=== PATIENT | male | born 1940 | race Caucasian/White ===

== ENCOUNTER → 2019-02-04 09:49 | Outpatient (CLI) | payer OTHER, SELFPAY ==
--- NOTE | 2019-02-04 | DI.NM.S_ITS ---
PROCEDURE: NM BONE SCAN WHOLE BODY RADIOPHARMACEUTICAL: 20.6 mCi Tc-99m MDP IV. INDICATIONS: ELEVATED PSA TECHNIQUE: Delayed whole-body scintigrams were obtained approximately 3-4 hours after intravenous injection of radiotracer. Anterior and posterior views were acquired from vertex to feet. COMPARISON: [facility], CT, CT ABDOMEN PELVIS W CON, 02/04/2019, 10:53. [facility], CT, CT-IVP, 01/09/2011, 10:21. FINDINGS: Degenerative changes at the mid and low cervical spine appear chronic, slightly asymmetric right greater than left shoulder joint osteoarthritis is present. Similarly, on the right there is a slightly greater degree of sternal clavicular joint degenerative change than on the left. Through the axial and appendicular skeleton bilaterally no osseous lesion is seen that would indicate presence of prostate carcinoma metastatic disease. 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 IMPRESSION: Degenerative changes only, no sign of metastatic disease. Dictated by: Aguila Vasquez M.D. on 02/04/2019 at 14:16 Approved by: Aguila Vasquez M.D. on 02/04/2019 at 14:18
--- NOTE | 2019-02-04 10:51 | DI.CT.S_ITS ---
PROCEDURE: CT ABDOMEN PELVIS W CON INDICATIONS: ELEVATED PSA TECHNIQUE: After the administration of oral and intravenous contrast, 5 mm thick sections acquired from the diaphragms to the symphysis. 5 mm thick coronal and sagittal reformats were performed. For radiation dose reduction, the following was used: automated exposure control, adjustment of mA and/or kV according to patient size. COMPARISON: [facility], NM, NM BONE SCAN WHOLE BODY, 02/04/2019, 12:58. [facility], CT, CT-IVP, 01/09/2011, 10:21. FINDINGS: Image quality: Excellent. ABDOMEN: Lung bases: Lung bases are clear. Heart size is normal. Solid organs: Liver is normal in size and enhancement. Gallbladder is partially contracted. Biliary system is non-dilated. Pancreas enhances normally. Spleen is normal in size and enhancement. No adrenal nodules. Kidneys are normal in size and enhancement, without hydronephrosis. Peritoneum and bowel: Stomach, small bowel, and colon loops are normal in caliber and wall thickness. No free fluid or air. Nodes and vessels: No retroperitoneal or mesenteric adenopathy. Aorta and inferior vena cava are normal in caliber. Miscellaneous: No ventral hernias. PELVIS: Genitourinary: Bladder wall thickness is normal. Miscellaneous: No inguinal hernias or adenopathy. Bones: No suspicious bony lesions. No vertebral body compression fractures. IMPRESSION: No osseous metastatic disease is seen. No adenopathy is found. There is no evidence of distant metastatic disease. An enlarged prostate or evidence of prostatic neoplasm extending into adjacent structures is not found. Dictated by: Aguila Vasquez M.D. on 02/04/2019 at 17:01 Approved by: Aguila Vasquez M.D. on 02/04/2019 at 17:02
== END ==
PROVIDERS: Family Provider Family Medicine; PCP Family Medicine; Visit Provider Family Medicine
DX: R97.20 Elevated prostate specific antigen [PSA] (principal); M47.812 Spondylosis without myelopathy or radiculopathy, cervical region; M19.012 Primary osteoarthritis, left shoulder; M19.011 Primary osteoarthritis, right shoulder; M19.042 Primary osteoarthritis, left hand; M19.041 Primary osteoarthritis, right hand; M17.0 Bilateral primary osteoarthritis of knee
CPT/HCPCS: 74177; 78306; A9503; Q9967

== ENCOUNTER → 2023-08-21 12:36 | Outpatient (ROUT) | payer OTHER, SELFPAY ==
[2023-08-21 12:49] LABS: Add Manual Diff / Slide Review NO; Basophils Absolute Auto 0 /uL (0-100); Basophils Percent Auto 0.5 % (0-2); Eosinophils Absolute Auto 200 /uL (0-450); Eosinophils Percent Auto 3.6 % (2-4); Hemoglobin 14.4 g/dL (13.5-17.5); Lymphocytes Absolute Auto 2200 /uL (1100-4500); Lymphocytes Percent Auto 36.7 % (25-40); Mean Corpuscular HGB Conc 33.5 % (30-36); Mean Corpuscular Hemoglobin 26.9 PG (26-34); Mean Corpuscular Volume 80.3 fL (80-100); Monocytes Absolute Auto 500 /uL (0-900); Monocytes Percent Auto 7.7 % (3-14); Neutrophils Absolute Auto 3000 /uL (1500-7000); Neutrophils Percent Auto 51.5 % (50-75); Platelet Count 204 X10^3/uL (150-400); Red Blood Cell Count 5.35 X10^6/uL (4.5-5.9); Red Cell Distribution Width 14.9 % (11.6-14.8); White Blood Cell Count 5.9 X10^3/uL (4.5-11.0)
[2023-08-21 12:55] LABS: Alanine Aminotransferase 21 IU/L (<50); Albumin 4.4 g/dL (3.5-5.0); Albumin Globulin Ratio 1.5 (1.0-2.8); Alkaline Phosphatase 63 U/L (38-126); Aspartate Aminotransferase 31 IU/L (17-59); BUN Creatinine Ratio 16.1 (6-22); Bilirubin Total 1.4 mg/dL (0.2-1.3); Blood Urea Nitrogen 22 mg/dL (9-20); Calcium 10.1 mg/dL (8.4-10.2); Carbon Dioxide 28 mmol/L (22-32); Chloride 105 mmol/L (98-107); Estimated Glomerular Filt Rate 52 mL/min (>60); Glucose 76 mg/dL (80-110); HEMOLYSIS < 15 (0-50); Potassium 4.3 mmol/L (3.4-5.1); Sodium 138 mmol/L (137-145); Total Protein 7.4 g/dL (6.3-8.2)
[2023-08-21 13:26] LABS: Prostate Specific Antigen 8.71 ng/mL (0.10-4.00)
== END ==
PROVIDERS: Visit Provider Family Medicine
DX: D51.9 Vitamin B12 deficiency anemia, unspecified (principal); Z85.46 Personal history of malignant neoplasm of prostate; F03.90 Unspecified dementia, unspecified severity, without behavioral disturbance, psychotic disturbance, mood disturbance, and anxiety
CPT/HCPCS: 80053; 84153; 85025

== ENCOUNTER → 2023-08-22 14:16 | Outpatient (CLI) | payer OTHER, SELFPAY ==
--- NOTE | 2023-08-22 14:22 | DI.RAD.S_ITS ---
PROCEDURE: XR CHEST 2V INDICATIONS: CHEST PAIN TECHNIQUE: 2 views of the chest were acquired. COMPARISON: [facility], , CHEST 2 VIEW, 05/28/2012, 15:27. FINDINGS: Surgical changes and devices: None. Lungs and pleura: Lungs are clear. No pleural effusions or pneumothorax. Mediastinum: Mediastinal contours are normal. Heart size is normal. Bones and chest wall: No suspicious bony abnormalities. Soft tissues appear unremarkable. IMPRESSION: No acute cardiopulmonary disease process. Dictated by: Najma Castro MD, PhD on 08/22/2023 at 14:42 Approved by: Najma Castro MD, PhD on 08/22/2023 at 14:44
== END ==
PROVIDERS: Family Provider Family Medicine; PCP Family Medicine; Referring Provider Family Medicine; Visit Provider Family Medicine
DX: R07.9 Chest pain, unspecified (principal)
CPT/HCPCS: 71046

== ENCOUNTER → 2023-10-14 14:54 | Outpatient (ROUT) | payer OTHER, SELFPAY ==
[2023-10-14 21:18] LABS: Prostate Specific Antigen 13.4 ng/mL (0.10-4.00)
== END ==
PROVIDERS: Family Provider Family Medicine; PCP Family Medicine; Visit Provider Family Medicine
DX: C61 Malignant neoplasm of prostate (principal); Z85.46 Personal history of malignant neoplasm of prostate
CPT/HCPCS: 84153

== ENCOUNTER → 2023-11-07 14:47 | Outpatient (ROUT) | payer OTHER, SELFPAY ==
[2023-11-07 15:11] LABS: BUN Creatinine Ratio 14.5 (6-22); Blood Urea Nitrogen 21 mg/dL (9-20); Calcium 9.9 mg/dL (8.4-10.2); Chloride 101 mmol/L (98-107); Estimated Glomerular Filt Rate 48 mL/min (>60); Glucose 82 mg/dL (80-110); HEMOLYSIS < 15 (0-50); Potassium 4.4 mmol/L (3.4-5.1); Sodium 138 mmol/L (137-145)
[2023-11-07 17:03] LABS: Carbon Dioxide 25 mmol/L (22-32)
== END ==
PROVIDERS: Family Provider Family Medicine; PCP Family Medicine; Visit Provider Family Medicine
DX: Z13.89 Encounter for screening for other disorder (principal)
CPT/HCPCS: 80048

== ENCOUNTER → 2023-11-14 09:45 | Outpatient (CLI) | payer OTHER, SELFPAY ==
--- NOTE | 2023-11-14 09:47 | DI.NM.S_ITS ---
PROCEDURE: NE BONE SCAN WHOLE BODY RADIOPHARMACEUTICAL: 22.0 mCi Tc-99m MDP IV. INDICATIONS: Rising PSA TECHNIQUE: Delayed whole-body scintigrams were obtained approximately 3-4 hours after intravenous injection of radiotracer. Anterior and posterior views were acquired from vertex to feet. Additional left and right oblique views of the pelvis were obtained. COMPARISON: [facility], CT, CT ABDOMEN PELVIS W CON, 11/14/2023, 10:58. [facility], CT, CT ABDOMEN PELVIS W CON, 02/04/2019, 10:53. [facility], NM, NE BONE SCAN WHOLE BODY, 02/04/2019, 12:58. FINDINGS: There is focal increased uptake at the cervical thoracic junction. No lesions are identified in skull, sternum, clavicles, scapulae, ribs, bony pelvis, and visualized shafts of the long bones. There are foci of increased uptake in cervical, thoracic and lumbar spine most likely secondary to degenerative disc and facet disease; early metastasis to spine could be obscured by degenerative changes. There are foci of increased periarticular activity most pronounced in shoulders and hips, compatible with degenerative/arthritic changes. There are 2 kidneys, normal in size and position. There is moderate right hydronephrosis and hydroureter. IMPRESSION: 1. Increased activity at the cervical thoracic junction. Recommend radiographic correlation. 2. Moderate right hydronephrosis and hydroureter. 3. In this patient with rising PSA and prostatectomy, consider PSMA PET CT for further evaluation. Dictated by: Anali Philip M.D. on 11/14/2023 at 16:02 Approved by: Anali Philip M.D. on 11/14/2023 at 16:06
--- NOTE | 2023-11-14 09:47 | DI.CT.S_ITS ---
PROCEDURE: CT ABDOMEN PELVIS W CON INDICATIONS: Rising PSA TECHNIQUE: After the administration of intravenous contrast, axial sections acquired from the lung bases to the pubic symphysis. Coronal and sagittal reformats were performed. For radiation dose reduction, the following was used: automated exposure control, adjustment of mA and/or kV according to patient size. COMPARISON: [facility], CT, CT ABDOMEN PELVIS W CON, 02/04/2019, 10:53. FINDINGS: Image quality: Diagnostic. Lower Chest: No significant findings. ABDOMEN: Liver: Macro lobulated liver contour, possibly cirrhosis. Patent portal veins. Scattered subcentimeter hypoattenuating lesions, too small to characterize by CT but probably small cysts. Gallbladder: No radiopaque gallstones or wall thickening. Biliary ducts: No biliary dilation. Pancreas: No ductal dilation. Spleen: Size is within normal limits. Adrenal Glands: No adrenal nodules. Kidneys and Ureters: Hyperattenuating mass on the superior pole of the right kidney measuring 1.4 centimeter previously 0.9 centimeter in 2019. Severe right-sided hydronephrosis, with decreased enhancement of the right kidney. Circumferential thickening of the distal right ureter (series 2, image 73). Stomach and Bowel: Normal colonic caliber, without significant wall thickening. Colonic diverticulosis without evidence of diverticulitis. Peritoneum: No abnormal intraperitoneal fluid. No free air. Ventral Wall: No hernia. Abdominal Nodes: No retroperitoneal or mesenteric adenopathy by size criteria. Vessels: Aorta and inferior vena cava are normal in size. PELVIS: Pelvic Organs: Prostatectomy. Mildly increased enhancement of the right lateral and central seminal vesicles (series 2, image 80). Bladder: Unremarkable. Pelvic Nodes: No enlarged lymph nodes. Miscellaneous: Left inguinal hernia repair. Right inguinal hernia containing fat, small in size. Bones: No aggressive osseous abnormality. IMPRESSION: Prostatectomy. Mildly increased enhancement in the right lateral and central seminal vesicles, could represent local recurrence. Consider correlation with PMSA (now offered at [facility]). Severe right-sided hydronephrosis. Circumferential thickening and hyperattenuation of the right distal ureter, which may indicate malignancy such as transitional cell carcinoma, less likely infection. Consider urology referral. Growing, hyper attenuating right renal lesion measuring 1.4 centimeters, previously 0.9 centimeters in 2019. Differential includes indolent renal cell carcinoma versus lipid poor AML. Dictated by: Hussain Jones M.D. on 11/14/2023 at 11:56 Approved by: Hussain Jones M.D. on 11/14/2023 at 12:02
== END ==
LOC: NUCM 09:45
PROVIDERS: Family Provider Family Medicine; PCP Family Medicine; Referring Provider Family Medicine; Visit Provider Family Medicine
DX: R97.21 Rising PSA following treatment for malignant neoplasm of prostate (principal); C61 Malignant neoplasm of prostate; N13.30 Unspecified hydronephrosis; N28.9 Disorder of kidney and ureter, unspecified
CPT/HCPCS: 74177; 78306; A9503; Q9967

== ENCOUNTER → 2024-01-08 15:26 | Outpatient (ROUT) | payer OTHER, SELFPAY ==
[2024-01-08 16:52] LABS: Prostate Specific Antigen 29.3 ng/mL (0.10-4.00)
== END ==
PROVIDERS: Visit Provider Family Medicine
DX: R97.21 Rising PSA following treatment for malignant neoplasm of prostate (principal); C61 Malignant neoplasm of prostate
CPT/HCPCS: 84153

== ENCOUNTER 2024-05-07 18:03 | Emergency (ER) | payer OTHER, SELFPAY ==
[2024-05-07 18:16] VITALS: BP 133/65; PULSE 68; RESP 17; TEMP 36.6; O2SAT 98; BMI 26.4
--- NOTE | 2024-05-07 18:19 | DI.RAD.S_ITS ---
PROCEDURE: XR SHOULDER LT MIN 2V INDICATIONS: fall TECHNIQUE: 3 views of the shoulder were acquired. COMPARISON: None. FINDINGS: Bones: No fractures or dislocations. Moderate acromioclavicular joint degeneration. No suspicious bony lesions. Visualized ribs appear intact. Soft tissues: No suspicious soft tissue calcifications. IMPRESSION: No acute osseous abnormality. If pain persists with conservative management, consider repeat x-ray in 10-14 days or cross-sectional imaging. Dictated by: Trenton Dalal M.D. on 05/07/2024 at 19:31 Approved by: Trenton Dalal M.D. on 05/07/2024 at 19:31
--- NOTE | 2024-05-07 20:12 | ED_ITS ---
HPI - Extremity Injury (Upper) General Chief Complaint: Extremity Injury, Upper Stated Complaint: Fall, left shoulder px, no blood thinners Time Seen by Provider: 05/07/24 18:12 Source: patient and family Mode of arrival: Ambulatory Limitations: no limitations History of Present Illness HPI narrative: 83-year-old male with history of dementia who had a ground level fall. Patient was walking his what with his found on a piece of property. He fell in his shoulder. No loss of consciousness no complaints of neck pain. Has complained of pain with his shoulder with movement and trying to push up. This happened about 330 in the afternoon has not resolved. No other complaints. Patient has not had any headaches, no difficulty with breathing, no chest pain, no nausea or vomiting no other GI or urinary symptoms. Does not take any anticoagulants. states he did not hit his head. Patient does have dementia in his unable to give much history about the episode. 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 Patient is cooperative. HEENT: Head normocephalic, atraumatic, EOMI, pupils reactive, face symmetric, moist mucous membranes NECK: Supple, full range of motion CARDIOVASCULAR: Regular rate and rhythm without murmurs, rubs or gallops. RESPIRATORY: Breath sounds equal bilaterally, no wheezes rales or rhonchi. ABDOMEN: Soft, nontender. Normoactive bowel sounds all 4 quadrants. No guarding or rebound, rigidity, no mass : No CVA tenderness EXTREMITIES: Normal range of motion passively of the shoulder, normal active range of motion of the elbow wrist and hand on the left. Some mild tenderness over the anterior shoulder but no significant tenderness over clavicle shoulder humerus elbow hand or wrist. 2+ radial pulse bilaterally. Vocational Rehabilitation Consultant are equal bilaterally. Normal sensation throughout, no clubbing or edema. Neurovascularly intact NEUROLOGICAL: Cranial nerves II through XII grossly intact. Moving all extremities SKIN: Warm, dry, no petechiae, no rashes or lesions. Initial Vital Signs Initial Vital Signs: Vital Signs Temperature 98 F 05/07/24 18:16 Pulse Rate 68 05/07/24 18:16 Respiratory Rate 17 05/07/24 18:16 Blood Pressure 133/65 05/07/24 18:16 Pulse Oximetry 98 05/07/24 18:16 Oxygen Delivery Method Room Air 05/07/24 18:16 Course Orders Ordered: ED Orders 05/07/24 18:19 XR shoulder LT min 2V Stat Vital Signs Vital signs: Vital Signs - 8 hr 05/07/24 18:16 Temperature 98 F Pulse Rate 68 Respiratory Rate 17 Blood Pressure 133/65 Pulse Oximetry 98 Oxygen Delivery Method Room Air MDM - Extremity Injury (Upper) MDM Narrative Medical decision making narrative: Shoulder x-ray shows no acute osseous abnormality. Moderate AC joint degeneration. No fractures or dislocations. Patient's exam is overall reassuring he can move up above his head passively. Does not really follow commands to do this but he also has pretty significant dementia. Discussed with plan for Tylenol, sling as needed and follow up in the next week if symptoms are persisting. Discharge Plan Departure Patient Disposition: Home Clinical Impression: Left shoulder pain Instructions: DI for Shoulder Sprain Activity Restrictions/Additional Instructions: Follow up in the next 7-10 days for recheck if symptoms have not improved. You can take Tylenol up to a 1000 mg every 6 hours as needed. You can use sling as needed, if you are moving your arm without any issue you do not have to continue to use it. Keep sling dry. Elevated affected body part to decrease swelling. OK to use ice pack on the affected body part. Use for 15-20 minutes each time, for 5-6x per day. If you develop worsening pain, numbness, tingling, discoloration of the affected body part, adjust the sling as needed., and either see your doctor for an urgent re-assessment, or return to the Emergency Department. Return to the Emergency Department for any new or worsening symptoms. Prescriptions: No Action prednisone 5 mg tablet 5 mg PO DAILY abiraterone 250 mg tablet 250 mg PO DAILY Referrals: Karis Wheeler MD [Primary Care Provider] - Stand Alone Forms: Patient Portal/API
[2024-05-07 20:20] VITALS: BP 146/91; PULSE 66; RESP 17; O2SAT 98
== END 2024-05-07 20:24 | disposition home or self-care (01) ==
PROVIDERS: Emergency Provider Emergency Medicine; Family Provider Family Medicine; PCP Family Medicine
DX: M25.512 Pain in left shoulder (principal)
CPT/HCPCS: 73030; 99282; 99283

== ENCOUNTER 2024-10-27 18:55 | Emergency (ER) | payer OTHER, SELFPAY ==
[2024-10-27 19:04] VITALS: BP 113/68
--- NOTE | 2024-10-27 19:09 | ED.GENADULT ---
HPI - General Adult General Chief complaint: Altered Mental Status Stated complaint: Increased Aggitation/Clutching abdomen Time Seen by Provider: 10/27/24 19:09 Source: patient, EMS, RN notes reviewed and old records reviewed Mode of arrival: EMS History of Present Illness HPI narrative: 83-year-old male history of dementia brought in by EMS for increased agitation and appears to potentially be in pain. He currently lives in a memory care unit they note patient is usually happy and ambulatory but has been acting like he is in pain seems to be more uncomfortable with any sort of palpation or touch to his abdomen. Patient keeps saying that he was going to be insonated and to stay away from the fire. He was not able to really participate otherwise in the evaluation. No reported anticoagulants. Patient is DNR/DNI comfort measures according to his POLST. Spoke with patient's , she states he has been doing very well in the last few days he does have known hallucinations, he has metastatic prostate cancer. He does not usually have a pain patch in place. She states he is definitely more upset this evening she states he received lorazepam which is sometimes helpful. She is open to further workup if we can get him more comfortable. Related Data Home Medications Medication Instructions Recorded Confirmed abiraterone 250 mg tablet 250 mg PO DAILY 05/07/24 07/05/24 prednisone 5 mg tablet 5 mg PO DAILY 05/07/24 07/05/24 lorazepam 0.5 mg tablet mg PO 07/05/24 07/05/24 Previous Rx's Medication Instructions Recorded lidocaine 3 %-hydrocortisone 0.5 % 1 applic topical BID-TID PRN 07/05/24 topical cream shingles rash #28.3 grams valacyclovir 1 gram tablet 1,000 mg PO Q8H shingles #21 tabs 07/05/24 Allergies Allergy/AdvReac Type Severity Reaction Status Date / Time No Known Drug Allergies Allergy Verified 07/05/24 10:19 Review of Systems Review of Systems ROS Unobtainable: Unobtainable due to mental status/LOC 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 Patient has clear speech but does not answer questions or really follow commands. HEENT: Head normocephalic, atraumatic, EOMI, pupils reactive, face symmetric, moist mucous membranes NECK: Supple, full range of motion CARDIOVASCULAR: Regular rate and rhythm without murmurs, rubs or gallops. RESPIRATORY: Breath sounds equal bilaterally, no wheezes rales or rhonchi. ABDOMEN: Soft, nondistended. No skin changes. Patient does not have any specific tenderness that I can elicit in any particular quadrant but does seem uncomfortable when I palpate his abdomen. Normoactive bowel sounds all 4 quadrants. No guarding or rebound, rigidity, no mass : No CVA tenderness EXTREMITIES: Normal range of motion, no clubbing or edema. Neurovascularly intact NEUROLOGICAL: Cranial nerves II through XII grossly intact. Moving all extremities SKIN: Warm, dry, no petechiae, no rashes or lesions. Initial Vital Signs Initial Vital Signs: Vital Signs Blood Pressure 113/68 10/27/24 19:04 Oxygen Delivery Method Room Air 10/27/24 19:04 Course Orders Ordered: Discontinued Medications Lorazepam (Lorazepam 0.5 Mg Tablet) 1 mg PO NOW ONE Stop: 10/27/24 19:16 Last Admin: 10/27/24 21:43 Dose: Not Given Documented By: Lorazepam (Lorazepam 2 Mg/Ml Inj) 1 mg IM NOW ONE Stop: 10/27/24 19:27 Last Admin: 10/27/24 19:31 Dose: 1 mg Documented By: Magnesium Citrate (Magnesium Citrate 300 Ml Solution) 300 ml PO NOW ONE Stop: 10/27/24 22:43 Last Admin: 10/27/24 22:57 Dose: 300 ml Documented By: Vital Signs Vital signs: Vital Signs - 8 hr 10/27/24 19:04 Blood Pressure 113/68 Oxygen Delivery Method Room Air Medical Decision Making Lab Data 10/27/24 20:05 10/27/24 20:05 Labs: Lab Results 10/27/24 Range/Units 20:05 WBC 5.3 (4.5-11.0) X10^3/uL RBC 4.13 L (4.5-5.9) X10^6/uL Hgb 11.2 L (13.5-17.5) g/dL Hct 33.8 L (41-53) % MCV 81.7 (80-100) fL MCH 27.2 (26-34) PG MCHC 33.3 (30-36) % RDW 14.6 (11.6-14.8) % Plt Count 184 (150-400) X10^3/uL Neut % (Auto) 72.5 (50-75) % Lymph % (Auto) 17.6 L (25-40) % [place] % (Auto) 7.9 (3-14) % Eos % (Auto) 1.5 L (2-4) % Baso % (Auto) 0.5 (0-2) % Neut # (Auto) 3900 (2679-9507) /uL Lymph # (Auto) 900 L (1239-2776) /uL [place] # (Auto) 400 (0-900) /uL Eos # (Auto) 100 (0-450) /uL Baso # (Auto) 0 (0-100) /uL Sodium 137 (137-145) mmol/L Potassium 3.9 (3.4-5.1) mmol/L Chloride 106 (98-107) mmol/L Carbon Dioxide 25 (22-32) mmol/L BUN 16 (9-20) mg/dL Creatinine 0.96 (0.66-1.25) mg/dL Estimated GFR > 60 (>60) mL/min BUN/Creatinine Ratio 16.7 (6-22) Glucose 136 H (80-110) mg/dL Calcium 9.6 (8.4-10.2) mg/dL Total Bilirubin 1.4 H (0.2-1.3) mg/dL AST 29 (17-59) IU/L ALT 21 (<50) IU/L Alkaline Phosphatase 48 (38-126) U/L Total Protein 6.3 (6.3-8.2) g/dL Albumin 3.7 (3.5-5.0) g/dL Globulin 2.6 (1.7-4.1) g/dL Albumin/Globulin Ratio 1.4 (1.0-2.8) Lipase 48 (23-300) U/L MDM Narrative Medical decision making narrative: White count of 5.3 hemoglobin 11.2 platelets of 184. Electrolytes are appropriate creatinine normal glucose is 136 bilirubin is 1.4 LFTs are otherwise negative lipase is 48. CT shows prostatectomy with redemonstration local tumor recurrence the base of the bladder numerous osseous metastases no pathologic fracture fecal loading which may represent constipation large rectal stool ball mildly increased soft tissue thickening sterile correlate colitis can not be excluded no obvious bladder obstruction. Patient received a dose of lorazepam as he was quite agitated when he arrived and he takes this at home was given IM as he would not take it orally. Discussed with he was comfort measures she was okay with workup if he is tolerating it well. Labs were obtained CT was obtained after discussion we will hold off on enema or disimpaction. We discussed obtaining urine but would probably require catheter which would like to defer. Discussed findings from today and return precautions. Discharge Plan Departure Patient Disposition: Home Clinical Impression: Constipation, Agitation Activity Restrictions/Additional Instructions: Your workup today shows no acute pathological fractures does show a lot of fecal loading could be constipation there is a large ball of stool at the rectal vault as well as throughout, as we have discussed we will hold off on nmr disimpaction at this time but if you have not had a bowel movement in 24-48 hours with increasing pain or agitation you should be re-evaluated. We did not obtain a urine to rule out UTI although this seems less likely source of symptoms at this time. There has also a possibility if you have had shingles in the abdomen in that area before that you can have a recurrence pain can sometimes proceed any rash or skin changes by several days. Keep a close eye out for any new skin changes. Drink 1/2 bottle of the magnesium citrate if no bowel movement you can drink the 2nd half of the bottle 4 or 5 hours later. I would recommend taking Colace 1-2 tablets daily along with MiraLax daily if you are not having bowel movements. Please return for fevers, any other new or concerning changes to mentation, new abdominal back flank pain, vomiting, black or bloody stools, inability to urinate or other new or concerning changes. Prescriptions: No Action lorazepam 0.5 mg tablet PO valacyclovir 1 gram tablet 1,000 mg PO Q8H Qty: 21 0RF lidocaine HCl-hydrocortison ac 3-0.5 % cream 1 applic topical BID-TID PRN (Reason: shingles rash) Qty: 28.3 1RF prednisone 5 mg tablet 5 mg PO DAILY abiraterone 250 mg tablet 250 mg PO DAILY Referrals: Karis Wheeler MD [Primary Care Provider] - Stand Alone Forms: Patient Portal/API/Survey
--- NOTE | 2024-10-27 19:15 | DI.CT.S_ITS ---
PROCEDURE: CT ABDOMEN PELVIS W CON INDICATIONS: Dementia, agitation, seems to have abdominal pain. TECHNIQUE: After the administration of intravenous contrast, axial sections acquired from the lung bases to the pubic symphysis. Coronal and sagittal reformats were performed. For radiation dose reduction, the following was used: automated exposure control, adjustment of mA and/or kV according to patient size. COMPARISON: [facility], CT, CT ABDOMEN PELVIS W CON, 11/14/2023, 10:58., PET P SMA 02/12/2024 FINDINGS: Image quality: Severely degraded by patient motion artifact.. Lower Chest: No significant findings. ABDOMEN: Liver: No solid mass. Redemonstration of multiple subcentimeter hepatic hypodensities, too small to characterize by CT. Gallbladder: No radiopaque gallstones or wall thickening. Biliary ducts: No biliary dilation. Pancreas: No ductal dilation. Spleen: Size is within normal limits. Adrenal Glands: No adrenal nodules. Kidneys and Ureters: No hydronephrosis. No solid mass. No complex renal cystic lesion which requires follow up. Stomach and Bowel: Normal colonic caliber, without significant wall thickening. High fecal loading. Large rectal stool ball. Peritoneum: No abnormal intraperitoneal fluid. No free air. Ventral Wall: No significant ventral hernia. Abdominal Nodes: No retroperitoneal or mesenteric adenopathy by size criteria. Vessels: Aorta and inferior vena cava are normal in size. PELVIS: Pelvic Organs: Prostatectomy. Redemonstration of soft tissue nodularity at the base of the bladder on the right consistent with local tumor recurrence in better visualized on prior PET PS mA. Bladder: No bladder wall thickening, accounting for underdistention. Pelvic Nodes: No enlarged lymph nodes. Miscellaneous: No inguinal hernias are seen. Bones: Innumerable sclerotic foci throughout the appendicular and axial skeleton, new since prior CT 11/14/2023 consistent with bone metastases. No pathological fracture. IMPRESSION: Prostatectomy with redemonstration of local tumor recurrence at the base of the bladder, better visualized on prior PET exam. Numerous osseous metastasis. No pathological fracture. High fecal loading which may represent constipation. Large rectal stool ball with mildly increased soft tissue thickening, stercoral colitis cannot be excluded. Approved by: Dori Castellon M.D.,Ph.D. on 10/27/2024 at 21:46
--- NOTE | 2024-10-27 19:30 | PC.NURSE ---
Pt lying back in gurney. Yelling and saying that there is a burning sensation. Pt holding on to gurney firmly Pt medicated for anxiety.
[2024-10-27] MEDS: LORazepam 2 MG/ML INJ 1 MG IM (19:31)
[2024-10-27 20:11] VITALS: BP 135/78; PULSE 65; RESP 19; O2SAT 98
[2024-10-27 20:13] LABS: Add Manual Diff / Slide Review NO; Basophils Absolute Auto 0 /uL (0-100); Basophils Percent Auto 0.5 % (0-2); Eosinophils Absolute Auto 100 /uL (0-450); Eosinophils Percent Auto 1.5 % (2-4); Hematocrit 33.8 % (41-53); Hemoglobin 11.2 g/dL (13.5-17.5); Lymphocytes Absolute Auto 900 /uL (1100-4500); Lymphocytes Percent Auto 17.6 % (25-40); Mean Corpuscular HGB Conc 33.3 % (30-36); Mean Corpuscular Hemoglobin 27.2 PG (26-34); Mean Corpuscular Volume 81.7 fL (80-100); Monocytes Absolute Auto 400 /uL (0-900); Monocytes Percent Auto 7.9 % (3-14); Neutrophils Absolute Auto 3900 /uL (1500-7000); Neutrophils Percent Auto 72.5 % (50-75); Platelet Count 184 X10^3/uL (150-400); Red Blood Cell Count 4.13 X10^6/uL (4.5-5.9); Red Cell Distribution Width 14.6 % (11.6-14.8); White Blood Cell Count 5.3 X10^3/uL (4.5-11.0)
[2024-10-27 20:24] LABS: Alanine Aminotransferase 21 IU/L (<50); Albumin 3.7 g/dL (3.5-5.0); Albumin Globulin Ratio 1.4 (1.0-2.8); Alkaline Phosphatase 48 U/L (38-126); Aspartate Aminotransferase 29 IU/L (17-59); BUN Creatinine Ratio 16.7 (6-22); Bilirubin Total 1.4 mg/dL (0.2-1.3); Blood Urea Nitrogen 16 mg/dL (9-20); Calcium 9.6 mg/dL (8.4-10.2); Carbon Dioxide 25 mmol/L (22-32); Chloride 106 mmol/L (98-107); Estimated Glomerular Filt Rate > 60 mL/min (>60); Globulin 2.6 g/dL (1.7-4.1); Glucose 136 mg/dL (80-110); HEMOLYSIS < 15 (0-50); Lipase 48 U/L (23-300); Potassium 3.9 mmol/L (3.4-5.1); Sodium 137 mmol/L (137-145); Total Protein 6.3 g/dL (6.3-8.2)
[2024-10-27 21:11] VITALS: BP 145/78; PULSE 65; RESP 16; O2SAT 99
[2024-10-27 22:11] VITALS: BP 144/77; PULSE 63; RESP 16; O2SAT 98
[2024-10-27] MEDS: MAGNESIUM CITRATE 300 ML SOLUTION PO (22:57)
== END 2024-10-27 23:00 | disposition home or self-care (01) ==
PROVIDERS: Emergency Provider Emergency Medicine; Family Provider Family Medicine; PCP Family Medicine
DX: R45.1 Restlessness and agitation (principal); K59.00 Constipation, unspecified; R44.3 Hallucinations, unspecified; C61 Malignant neoplasm of prostate; Z66 Do not resuscitate
CPT/HCPCS: 36415; 74177; 80053; 83690; 85025; 96372; 99284; J2060

== ENCOUNTER 2024-10-28 10:47 | Emergency (ER) | payer OTHER, SELFPAY ==
[2024-10-28 10:52] VITALS: BP 133/61; PULSE 89; PULSE 90; RESP 16; TEMP 36.6; O2SAT 94; O2SAT 95
[2024-10-28 10:53] VITALS: TEMP 36.6; BMI 25.1
[2024-10-28 11:00] VITALS: BP 112/57; PULSE 80; O2SAT 95
--- NOTE | 2024-10-28 11:04 | ED.GENADULT ---
HPI - General Adult General Chief complaint: Abdominal Pain Stated complaint: ABD pain/Constipation Time Seen by Provider: 10/28/24 10:52 Source: EMS Mode of arrival: EMS Limitations: other (Dementia) History of Present Illness HPI narrative: Patient has a history of dementia. Lives at a memory care facility. Is here for evaluation of what was reported to be abdominal pain although here in the emergency department the patient denies any pain. He was seen here in the ER yesterday for agitation. Had a workup in his CT scan of his abdomen but showed probable constipation. Was given magnesium citrate and sent home with instructions to take another dose of the magnesium citrate but apparently this was not administered to the patient. Related Data Home Medications Medication Instructions Recorded Confirmed abiraterone 250 mg tablet 250 mg PO DAILY 05/07/24 07/05/24 prednisone 5 mg tablet 5 mg PO DAILY 05/07/24 07/05/24 lorazepam 0.5 mg tablet mg PO 07/05/24 07/05/24 Previous Rx's Medication Instructions Recorded lidocaine 3 %-hydrocortisone 0.5 % 1 applic topical BID-TID PRN 07/05/24 topical cream shingles rash #28.3 grams valacyclovir 1 gram tablet 1,000 mg PO Q8H shingles #21 tabs 07/05/24 Allergies Allergy/AdvReac Type Severity Reaction Status Date / Time No Known Drug Allergies Allergy Verified 07/05/24 10:19 Review of Systems Review of Systems Narrative: Very difficult to obtain review of systems given the patient's dementia. 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 Elevated PSA Social History Smoking Status: Former smoker Tobacco: How many years used: 10 second hand exposure: No alcohol intake: current substance use type: does not use Smoking Status: Former smoker alcohol intake frequency: 0-2 drinks per day Exam Initial Vital Signs Initial Vital Signs: Vital Signs Temperature 98 F 10/28/24 10:52 Pulse Rate 90 10/28/24 10:52 Respiratory Rate 16 10/28/24 10:52 Blood Pressure 133/61 10/28/24 10:52 Pulse Oximetry 94 10/28/24 10:52 Oxygen Delivery Method Room Air 10/28/24 10:52 Const General: cooperative, comfortable and No ill appearing [facility] Head: normal to inspection and normocephalic Resp Auscultation: clear to auscultation bilaterally Percussion: percussion normal Cardio Rate: regular rate Rhythm: regular rhythm GI Inspection: normal to inspection and non-distended Palpation: soft Skin General: no rashes or lesions noted Extrem Other: No gross deformities. Course Orders Ordered: ED Orders 10/28/24 11:26 Urinalysis and Microscopic Stat 10/28/24 12:57 Complete Blood Count AUTO DIFF Stat Comprehensive Metabolic Panel Stat Lipase Stat Discontinued Medications Lidocaine HCl (Lidocaine 2% (Glydo) 6 Ml Gel) 6 ml TOP NOW ONE Stop: 10/28/24 11:15 Last Admin: 10/28/24 11:20 Dose: 6 ml Documented By: Magnesium Citrate (Magnesium Citrate 300 Ml Solution) 300 ml PO NOW ONE Stop: 10/28/24 11:15 Last Admin: 10/28/24 12:40 Dose: 300 ml Documented By: Vital Signs Vital signs: Vital Signs - 8 hr 10/28/24 10:52 10/28/24 10:53 Temperature 98 F 97.8 F Pulse Rate 90 Respiratory Rate 16 Blood Pressure [Right Arm] 133/61 Pulse Oximetry 94 Oxygen Delivery Method Room Air Medical Decision Making Medical Records Medical records reviewed: Yes I reviewed the patient's medical records. Lab Data Lab results reviewed: Yes I reviewed the patient's lab results. 10/28/24 12:57 10/28/24 12:57 Labs: Lab Results 10/28/24 10/28/24 Range/Units 11:26 12:57 WBC 5.6 (4.5-11.0) X10^3/uL RBC 4.43 L (4.5-5.9) X10^6/uL Hgb 12.0 L (13.5-17.5) g/dL Hct 36.5 L (41-53) % MCV 82.4 (80-100) fL MCH 27.1 (26-34) PG MCHC 32.8 (30-36) % RDW 14.6 (11.6-14.8) % Plt Count 202 (150-400) X10^3/uL Neut % (Auto) 62.3 (50-75) % Lymph % (Auto) 26.1 (25-40) % [place] % (Auto) 8.1 (3-14) % Eos % (Auto) 2.9 (2-4) % Baso % (Auto) 0.6 (0-2) % Neut # (Auto) 3500 (9313-8583) /uL Lymph # (Auto) 1500 (0901-5097) /uL [place] # (Auto) 500 (0-900) /uL Eos # (Auto) 200 (0-450) /uL Baso # (Auto) 0 (0-100) /uL Sodium 138 (137-145) mmol/L Potassium 3.9 (3.4-5.1) mmol/L Chloride 106 (98-107) mmol/L Carbon Dioxide 27 (22-32) mmol/L BUN 14 (9-20) mg/dL Creatinine 0.90 (0.66-1.25) mg/dL Estimated GFR > 60 (>60) mL/min BUN/Creatinine Ratio 15.6 (6-22) Glucose 103 (80-110) mg/dL Calcium 10.0 (8.4-10.2) mg/dL Total Bilirubin 1.6 H (0.2-1.3) mg/dL AST 31 (17-59) IU/L ALT 20 (<50) IU/L Alkaline Phosphatase 53 (38-126) U/L Total Protein 7.0 (6.3-8.2) g/dL Albumin 3.9 (3.5-5.0) g/dL Globulin 3.1 (1.7-4.1) g/dL Albumin/Globulin Ratio 1.3 (1.0-2.8) Lipase 54 (23-300) U/L Urine Color Yellow Urine Appearance Clear Urine pH 6.5 (4.5-8.0) Ur Specific [place] 1.015 (1.000-1.035) Urine Protein Trace H (Negative) Urine Glucose (UA) Negative (Negative) g/dL Urine Ketones Trace H (NEGATIVE) Urine Occult Blood Negative (Negative) Urine Nitrate Negative (Negative) Urine Bilirubin Negative (NEGATIVE) Urine Urobilinogen 1.0 (0.2) E.U./dL Ur Leukocyte Esterase Negative (NEGATIVE) Urine RBC None seen (0-5/HPF) Urine WBC None seen (0-5/HPF) Ur Squamous Epith Cells None seen (0-5/HPF) Ur Renal Epithelial Cell 0-1/hpf (0-1/HPF) Urine Bacteria None seen (None) Ur Culture Indicated? Cult not indicated Vol Urine Centrifuged 10ml (spun) MDM Narrative Medical decision making narrative: Patient was at his baseline mental status. Had an extensive workup yesterday which showed a very large fecal load. His labs today are unremarkable. Has a soft abdomen. He has been drinking his magnesium citrate. I think that he would benefit from an enema however given his dementia I do not think that he would hold the enema for any extended period of time that would make it beneficial. He can continue to take laxatives by mouth. Will hold on any further workup for now. Patient's is in agreement. Discharge Plan Departure Patient Disposition: Home Clinical Impression: Constipation Instructions: DI for Constipation Activity Restrictions/Additional Instructions: I do recommend that Julio receive a laxative during his meals for the next couple days or until he has a bowel movement. He can continue the rest of his medications as directed. Prescriptions: No Action lorazepam 0.5 mg tablet PO valacyclovir 1 gram tablet 1,000 mg PO Q8H Qty: 21 0RF lidocaine HCl-hydrocortison ac 3-0.5 % cream 1 applic topical BID-TID PRN (Reason: shingles rash) Qty: 28.3 1RF prednisone 5 mg tablet 5 mg PO DAILY abiraterone 250 mg tablet 250 mg PO DAILY Referrals: Karis Wheeler MD [Primary Care Provider] - Stand Alone Forms: Patient Portal/API/Survey
[2024-10-28] MEDS: LIDOCAINE 2% (GLYDO) 6 ML GEL TOP (11:20)
--- NOTE | 2024-10-28 11:42 | PC.NURSE ---
Straight cath for UA. Pt tolerated fair. Pt not drinking mag citrate. Elza at bedside.
[2024-10-28] MEDS: MAGNESIUM CITRATE 300 ML SOLUTION PO (12:40)
[2024-10-28 12:57] LABS: Appearance Urine UA CLEAR; Bilirubin Urine UA NEGATIVE (NEGATIVE); Color Urine UA YELLOW; Glucose Urine UA NEGATIVE (Negative); Ketones Urine UA TRACE (NEGATIVE); Leukocyte Esterase Urine UA NEGATIVE (NEGATIVE); Nitrite Urine UA NEGATIVE (Negative); Occult Blood Urine UA NEGATIVE (Negative); Protein Urine UA TRACE (Negative); Specific Gravity Urine UA 1.015 (1.000-1.035); pH Urine UA 6.5 (4.5-8.0)
[2024-10-28 13:12] LABS: Add Manual Diff / Slide Review NO; Basophils Absolute Auto 0 /uL (0-100); Basophils Percent Auto 0.6 % (0-2); Eosinophils Absolute Auto 200 /uL (0-450); Eosinophils Percent Auto 2.9 % (2-4); Hematocrit 36.5 % (41-53); Lymphocytes Absolute Auto 1500 /uL (1100-4500); Lymphocytes Percent Auto 26.1 % (25-40); Mean Corpuscular HGB Conc 32.8 % (30-36); Mean Corpuscular Hemoglobin 27.1 PG (26-34); Mean Corpuscular Volume 82.4 fL (80-100); Monocytes Absolute Auto 500 /uL (0-900); Monocytes Percent Auto 8.1 % (3-14); Neutrophils Absolute Auto 3500 /uL (1500-7000); Neutrophils Percent Auto 62.3 % (50-75); Platelet Count 202 X10^3/uL (150-400); Red Blood Cell Count 4.43 X10^6/uL (4.5-5.9); Red Cell Distribution Width 14.6 % (11.6-14.8); White Blood Cell Count 5.6 X10^3/uL (4.5-11.0)
[2024-10-28 13:28] LABS: Alanine Aminotransferase 20 IU/L (<50); Albumin 3.9 g/dL (3.5-5.0); Albumin Globulin Ratio 1.3 (1.0-2.8); Alkaline Phosphatase 53 U/L (38-126); Aspartate Aminotransferase 31 IU/L (17-59); BUN Creatinine Ratio 15.6 (6-22); Bilirubin Total 1.6 mg/dL (0.2-1.3); Blood Urea Nitrogen 14 mg/dL (9-20); Carbon Dioxide 27 mmol/L (22-32); Chloride 106 mmol/L (98-107); Estimated Glomerular Filt Rate > 60 mL/min (>60); Globulin 3.1 g/dL (1.7-4.1); Glucose 103 mg/dL (80-110); HEMOLYSIS < 15 (0-50); Lipase 54 U/L (23-300); Potassium 3.9 mmol/L (3.4-5.1); Sodium 138 mmol/L (137-145)
[2024-10-28 13:37] LABS: Bacteria Urine None Seen; Culture Indicated Urine Cult Not Indicated; RBC Urine None Seen (0-5/HPF); Renal Epithelial Cells Urine 0-1/HPF (0-1/HPF); Squamous Epithelial Cell Urine None Seen (0-5/HPF); Urine Volume 10mL (spun); WBC Urine None Seen (0-5/HPF)
[2024-10-28 14:00] VITALS: BP 140/78; PULSE 69; RESP 18; TEMP 37.1; O2SAT 98
== END 2024-10-28 14:18 | disposition home or self-care (01) ==
PROVIDERS: Emergency Provider Emergency Medicine; Family Provider Family Medicine; PCP Family Medicine
DX: K59.00 Constipation, unspecified (principal)
CPT/HCPCS: 51701; 51798; 80053; 81001; 83690; 85025; 99283

== ENCOUNTER 2024-11-09 22:10 | Emergency (ER) | payer OTHER, SELFPAY ==
[2024-11-09 22:15] VITALS: PULSE 66
[2024-11-09 22:19] VITALS: BP 151/92; PULSE 82; RESP 17; TEMP 36.4; O2SAT 94
--- NOTE | 2024-11-09 22:24 | ED_ITS ---
HPI - General Adult <Tony Chen DO - Last Filed: 11/19/24 17:56> General Chief complaint: Altered Mental Status Stated complaint: pain, agitation Time Seen by Provider: 11/09/24 22:15 Source: family and EMS Mode of arrival: EMS History of Present Illness HPI narrative: Patient was an 84-year-old male. Is a resident of [facility]. Has metastatic prostate cancer. Brought in by EMS for evaluation of increased agitation. Patient's thinks that he was in pain. He does have a buprenorphine patch on. Has overall hydrocodone ordered to use as needed but she states he was not had anything really to eat or drink over the past 24-48 hours. The living facility he was trying to give him his pain medication by crushing it up and putting in his mouth but the patient's states that she was unsure as to how much she was actually taking. The patient was unable to provide any HPI given his history of dementia. I evaluated him here in the emergency department about 2 weeks ago for constipation. Patient's states he has had bowel movements since that time. Patient's states that she did agree to hospice care over the past 24 hours. A referral has been placed but no hospice care has been set up up to this point. Patient's heard from the facility that he potentially had a fall earlier in the day. Related Data Home Medications Medication Instructions Recorded Confirmed abiraterone 250 mg tablet 250 mg PO DAILY 05/07/24 07/05/24 prednisone 5 mg tablet 5 mg PO DAILY 05/07/24 07/05/24 lorazepam 0.5 mg tablet mg PO 07/05/24 07/05/24 Previous Rx's Medication Instructions Recorded lidocaine 3 %-hydrocortisone 0.5 % 1 applic topical BID-TID PRN 07/05/24 topical cream shingles rash #28.3 grams valacyclovir 1 gram tablet 1,000 mg PO Q8H shingles #21 tabs 07/05/24 morphine 20 mg/5 mL (4 mg/mL) oral 4 - 8 mg (1 - 2 mL) PO Q2H PRN 11/10/24 solution agitation #120 mL Allergies Allergy/AdvReac Type Severity Reaction Status Date / Time No Known Drug Allergies Allergy Verified 07/05/24 10:19 Review of Systems <DO Terry Toro Last Filed: 11/19/24 17:56> Review of Systems Narrative: Unable to obtain given patient's history of dementia Patient History <Tony Chen DO - Last Filed: 11/19/24 17:56> Medical History 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 Elevated PSA Social History Smoking Status: Former smoker Tobacco: How many years used: 10 second hand exposure: No alcohol intake: current substance use type: does not use Smoking Status: Former smoker alcohol intake frequency: 0-2 drinks per day Exam <Tony Chen DO - Last Filed: 11/19/24 17:56> Initial Vital Signs Initial Vital Signs: Vital Signs Pulse Rate 66 11/09/24 22:15 Const Other: Appear somewhat agitated HENMT Head: normal to inspection Resp Effort & Inspection: normal respiratory effort Auscultation: clear to auscultation bilaterally Cardio Rate: regular rate Rhythm: regular rhythm GI Inspection: normal to inspection Skin Other: No lesions noted Neuro Other: Patient does not follow commands. He was moving all 4 extremities but does seem to not want to move his left shoulder. Extrem Other: No gross deformities but seems to have some discomfort with movement of the left shoulder. He was left elbow left wrist are unremarkable. <Marga Glover MD - Last Filed: 11/11/24 08:30> Initial Vital Signs Initial Vital Signs: Vital Signs Pulse Rate 66 11/09/24 22:15 Course <Tony Chen DO - Last Filed: 11/19/24 17:56> Orders Ordered: Discontinued Medications Fentanyl (Fentanyl 25 Mcg/Patch) 25 mcg TOP NOW ONE Stop: 11/10/24 06:06 Last Admin: 11/10/24 06:20 Dose: 25 mcg Documented By: SUZANNE Sodium Chloride (Normal Saline 0.9%) 1,000 mls @ 1,000 mls/hr IV BOLUS ONE Stop: 11/09/24 23:50 Last Infusion: 11/10/24 00:25 Dose: Infused Documented By: Admin: 11/09/24 23:13 Dose: 1,000 mls/hr Documented By: SUZANNE Lorazepam (Lorazepam 2 Mg/Ml Inj) 1 mg IM NOW ONE Stop: 11/09/24 22:25 Last Admin: 11/09/24 22:29 Dose: 1 mg Documented By: SUZANNE Lorazepam (Lorazepam 2 Mg/Ml Inj) 0.5 mg IV NOW ONE Stop: 11/10/24 06:43 Last Admin: 11/10/24 06:49 Dose: 0.5 mg Documented By: SUZANNE Morphine Sulfate (Morphine 2 Mg/Ml Inj) 2 mg IV NOW ONE Stop: 11/10/24 00:33 Last Admin: 11/10/24 00:37 Dose: 2 mg Documented By: SUZANNE Morphine Sulfate (Morphine 2 Mg/Ml Inj) 2 mg IV NOW ONE Stop: 11/10/24 00:57 Last Admin: 11/10/24 00:59 Dose: 2 mg Documented By: SUZANNE Morphine Sulfate (Morphine 2 Mg/Ml Inj) 2 mg IV NOW ONE Stop: 11/10/24 09:44 Last Admin: 11/10/24 09:48 Dose: 2 mg Documented By: SUZANNE(2) Vital Signs Vital signs: Vital Signs - 8 hr 11/10/24 06:02 11/10/24 06:03 11/10/24 06:03 Temperature 97.3 F L Pulse Rate Respiratory Rate Blood Pressure 164/79 H Pulse Oximetry 97 96 11/10/24 09:45 11/10/24 10:24 Temperature 97.1 F L Pulse Rate 45 L Respiratory Rate 21 19 Blood Pressure 160/73 H Pulse Oximetry 97 <Marga Glover MD - Last Filed: 11/11/24 08:30> Orders Ordered: Discontinued Medications Fentanyl (Fentanyl 25 Mcg/Patch) 25 mcg TOP NOW ONE Stop: 11/10/24 06:06 Last Admin: 11/10/24 06:20 Dose: 25 mcg Documented By: SUZANNE Sodium Chloride (Normal Saline 0.9%) 1,000 mls @ 1,000 mls/hr IV BOLUS ONE Stop: 11/09/24 23:50 Last Infusion: 11/10/24 00:25 Dose: Infused Documented By: Admin: 11/09/24 23:13 Dose: 1,000 mls/hr Documented By: SUZANNE Lorazepam (Lorazepam 2 Mg/Ml Inj) 1 mg IM NOW ONE Stop: 11/09/24 22:25 Last Admin: 11/09/24 22:29 Dose: 1 mg Documented By: SUZANNE Lorazepam (Lorazepam 2 Mg/Ml Inj) 0.5 mg IV NOW ONE Stop: 11/10/24 06:43 Last Admin: 11/10/24 06:49 Dose: 0.5 mg Documented By: SUZANNE Morphine Sulfate (Morphine 2 Mg/Ml Inj) 2 mg IV NOW ONE Stop: 11/10/24 00:33 Last Admin: 11/10/24 00:37 Dose: 2 mg Documented By: SUZANNE Morphine Sulfate (Morphine 2 Mg/Ml Inj) 2 mg IV NOW ONE Stop: 11/10/24 00:57 Last Admin: 11/10/24 00:59 Dose: 2 mg Documented By: SUZANNE Morphine Sulfate (Morphine 2 Mg/Ml Inj) 2 mg IV NOW ONE Stop: 11/10/24 09:44 Last Admin: 11/10/24 09:48 Dose: 2 mg Documented By: SUZANNE(2) Vital Signs Vital signs: Vital Signs - 8 hr 11/10/24 06:02 11/10/24 06:03 11/10/24 06:03 Temperature 97.3 F L Pulse Rate Respiratory Rate Blood Pressure 164/79 H Pulse Oximetry 97 96 11/10/24 09:45 11/10/24 10:24 Temperature 97.1 F L Pulse Rate 45 L Respiratory Rate 21 19 Blood Pressure 160/73 H Pulse Oximetry 97 Medical Decision Making <Tony Chen DO - Last Filed: 11/19/24 17:56> Imaging Data Extremity x-ray #1: Radiologist's Impression: PROCEDURE: XR SHOULDER LT MIN 2V INDICATIONS: eval for FX TECHNIQUE: 2 views of the shoulder were acquired. COMPARISON: [facility], , XR SHOULDER LT MIN 2V, 05/07/2024, 18:49. FINDINGS: Bones: No fractures or dislocations. No suspicious bony lesions. Visualized ribs appear intact. Soft tissues: No suspicious soft tissue calcifications. IMPRESSION: No acute bony abnormality. If symptoms persist with conservative management, consider cross-sectional imaging such as CT or MRI. [facility] Narrative Medical decision making narrative: Initially had some improvement with Ativan. We were able to place an IV and he did receive fluids. This left shoulder x-ray is relatively unremarkable. He then became agitated again. He was given a dose of morphine which seemed to minimal response. He was given a 2nd dose of morphine and afterwards seemed to be much calmer and was able to sleep. I had a long discussion with the patient's regarding he was presentation today. We will hold on any further radiologic studies or labs for now. I informed her that he was unsure as to whether or not his decrease in agitation was given the time of day when he would be sleeping any ways or because of his morphine or potentially both. Patient's seems to think that he was in much more pain than what we think. He does have history of metastatic prostate cancer with lesions to his brain, bone, abdomen. He very well could be in quite a bit of discomfort. He was a buprenorphine patch in place with oral Ativan and hydrocodone written for him but if he was not taking much oral intake this may not be sufficient. I feel that they are too many questions to be answered at this time a day to include whether or not he was tolerating oral intake or exactly what dose of medication would be appropriate for him. He was no specific indication for admission to the hospital so we will keep him in the emergency department overnight. Care turned over today provider to continue to observe, re-evaluate, potentially talk with his primary doctor and potentially have social work involvement. A referral for hospice has been placed and I think that would most appropriate for his comfort. Patient's is in agreement with plan. <Marga Glover MD - Last Filed: 11/11/24 08:30> [facility] Narrative Medical decision making narrative: Initially had some improvement with Ativan. We were able to place an IV and he did receive fluids. This left shoulder x-ray is relatively unremarkable. He then became agitated again. He was given a dose of morphine which seemed to minimal response. He was given a 2nd dose of morphine and afterwards seemed to be much calmer and was able to sleep. I had a long discussion with the patient's regarding he was presentation today. We will hold on any further radiologic studies or labs for now. I informed her that he was unsure as to whether or not his decrease in agitation was given the time of day when he would be sleeping any ways or because of his morphine or potentially both. Patient's seems to think that he was in much more pain than what we think. He does have history of metastatic prostate cancer with lesions to his brain, bone, abdomen. He very well could be in quite a bit of discomfort. He was a buprenorphine patch in place with oral Ativan and hydrocodone written for him but if he was not taking much oral intake this may not be sufficient. I feel that they are too many questions to be answered at this time a day to include whether or not he was tolerating oral intake or exactly what dose of medication would be appropriate for him. He was no specific indication for admission to the hospital so we will keep him in the emergency department overnight. Care turned over today provider to continue to observe, re-evaluate, potentially talk with his primary doctor and potentially have social work involvement. A refe rral for hospice has been placed and I think that would most appropriate for his comfort. Patient's is in agreement with plan. [address] Glover Care is assumed. Patient's primary care physician his care and Liam, she works with the [facility], clinic #[phone] a message is left to have her call us 1st thing this morning We will contact hospice to initiate hospice referral Buprenorphine patch was removed and fentanyl patch was placed. I am concerned that until the buprenorphine is completely cleared the fentanyl is going to be less effective and become more concentrated over time. We will obviously need evaluation over the next 24 hours. Patient is in a dementia care facility. We will coordinate with Dr. Wheeler but I believe sublingual morphine can be administered for pain control. Discussed care findings and plan with his . Patient may well be an appropriate candidate for morphine drip. 9am care is coordinated with Dr. Wheeler. Phone call was made to hospice, apparently she talked with them yesterday as well. Talked about active management of end of life care. She is comfortable managing all medications once [facility]. We talked about the fentanyl patch, possible morphine drip, sublingual morphine for pain control. is understanding and has been through similar processes with 3 other family members with excellent experiences with hospice. We will arrange for BLS transport back to his memory care facility. At this time he is comfortable and minimally arousable. Discharge Plan Departure Patient Disposition: Home Clinical Impression: Metastatic malignant neoplasm to prostate, Advanced dementia, End of life care Activity Restrictions/Additional Instructions: I believe that Julio is entering the active portion of dying due to his metastatic prostate cancer and advanced dementia. I have spoken with Dr. Wheeler. At this point we are going to redirect focus of care to comfort. Hospice was consulted yesterday we will talk with them again today. Dr. Wheeler is going to manage pain medications, we have discontinued his buprenorphine patch replacing it with a 25 mcg fentanyl patch. Julio can eat and drink as he wants, if he has not hungry or thirsty this does not need to be forced upon him. Additional pain medication for agitation we will be appropriate and Dr. Wheeler is going to be likely getting him a prescription for concentrated sublingual morphine if hospice is not able to get to the facility today to provide those resources. understands that this is a sometimes slow process, but the end of life is imminent. Questions have been answered and a BLS transport has been arranged to have him go back to [facility]. Prescriptions: New morphine 20 mg/5 mL (4 mg/mL) solution 4 - 8 mg PO Q2H PRN (Reason: agitation) Qty: 120 0RF Rx Instructions: Use for pain or agitation, do not titrate to breathing No Action lorazepam 0.5 mg tablet PO valacyclovir 1 gram tablet 1,000 mg PO Q8H Qty: 21 0RF lidocaine HCl-hydrocortison ac 3-0.5 % cream 1 applic topical BID-TID PRN (Reason: shingles rash) Qty: 28.3 1RF prednisone 5 mg tablet 5 mg PO DAILY abiraterone 250 mg tablet 250 mg PO DAILY Referrals: Karis Wheeler MD [Primary Care Provider] - Stand Alone Forms: Patient Portal/API/Survey
[2024-11-09] MEDS: LORazepam 2 MG/ML INJ 1 MG IM (22:29)
--- NOTE | 2024-11-09 22:51 | DI.RAD.S_ITS ---
PROCEDURE: XR SHOULDER LT MIN 2V INDICATIONS: eval for FX TECHNIQUE: 2 views of the shoulder were acquired. COMPARISON: [facility], CR, XR SHOULDER LT MIN 2V, 05/07/2024, 18:49. FINDINGS: Bones: No fractures or dislocations. No suspicious bony lesions. Visualized ribs appear intact. Soft tissues: No suspicious soft tissue calcifications. IMPRESSION: No acute bony abnormality. If symptoms persist with conservative management, consider cross-sectional imaging such as CT or MRI. Approved by: Dori Castellon M.D.,Ph.D. on 11/09/2024 at 23:28
[2024-11-09] MEDS: SODIUM CHLORIDE 0.9% 1,000 ML 1000 ML IV (23:13)
--- NOTE | 2024-11-09 23:21 | PC.NURSE ---
reports pt with dementia hx. Today more agitated than normal and poor PO intake recently. states pt had a fall today, concern for injury to L shoulder. reports pt is transitioning to hospice care.
[2024-11-10] MEDS: MORPHINE 2 MG/ML INJ IV ×3 (00:37→09:48)
--- NOTE | 2024-11-10 01:04 | PC.NURSE ---
Increasingly restless. Grimacing, trying to get out of bed. at bedside, thinks pt is in pain. Pt medicated for pain x 2 with morphine, pt still exhibiting signs of pain, will monitor for effect.
[2024-11-10 06:02] VITALS: O2SAT 97
[2024-11-10 06:03] VITALS: BP 164/79; TEMP 36.3; O2SAT 96
--- NOTE | 2024-11-10 06:11 | PC.NURSE ---
Pt's bupenorphrine patch removed from upper back and wasted (witnessed by RN Felicia Sands). Plan to try fentanyl patch for better pain control. at bedside agreeable. No urine OP after fluids last night. Jenelle care provided, pt turned and repositioned for comfort.
[2024-11-10] MEDS: fentaNYL 25 MCG/PATCH TOP (06:20)
[2024-11-10] MEDS: LORazepam 2 MG/ML INJ 0.5 MG IV (06:49)
--- NOTE | 2024-11-10 07:19 | PC.NURSE ---
Report given to keke SHANKS
--- NOTE | 2024-11-10 07:48 | PC.NURSE ---
Pt family member at bedside. Family member states pt has taken a nose dive in the recent weeks; states after shingles diagnosis in Jun/Jul pts dementia got worse. States over the past week pt has gotten increasingly weak. Pt family member states they wish they put pt on hospice stating she is waiting to hear back from hospice; put pt on hospice yesterday--states pt has hx of prostate cancer. States pt has been agitated and increasingly uncomfortable.
--- NOTE | 2024-11-10 09:28 | CM.SWNOTE ---
Addendum entered by JEN Gardner 11/10/24 10:15: ED DROP FORGE HAND spoke with [place] at [facility], discussed start of care on 11/11 at 1400. Also reported hospital bed to be delivered today, 11/10. [facility] requested [facility] clinicals to be sent to them via fax, clinicals sent via efax. ED DROP FORGE HAND discussed this with pt , [facility] at beside about to transport pt back to [facility]. VERNA Benton Original Note: ED DROP FORGE HAND Assessment Note: Pt is a 84yo male, resident of [place], presented to the ED for pain, agitation. Pt has a hx of dementia. Pt lives at [facility]. Pt's Primary Care Provider is Dr. Karis Wheeler and insurance is [facility]. Reviewed chart and discussed with multidisciplinary team pt's medical status and initial discharge needs. DROP FORGE HAND consulted for hospice care referral. DROP FORGE HAND called [facility] ([facility] and left voice message with referral line in case more clinicals needed from [facility]. DROP FORGE HAND entered room to meet with patient, introduced self and role. Pt is asleep, pt at bedside. DROP FORGE HAND discussed recommendations for comfort care and Hospice services with pt , pt agreed and is hopeful to get more assistance at [facility]. Pt states she had an informational meeting with [facility] a few weeks ago but service has not officially started yet. DROP FORGE HAND reviews this with ED provider Dr. Glover who has been collaborating with pt PCP (Dr. Wheeler) re: hospice plan and states no other clinicals needed to be sent to [facility] at this time. DROP FORGE HAND discussed above with RN. Plan: Pt to discharge with back to [facility] to transport at 935am. [facility] to start care soon. VERNA Benton
[2024-11-10 09:45] VITALS: BP 160/73; PULSE 45; RESP 21; TEMP 36.2; O2SAT 97
[2024-11-10 10:24] VITALS: RESP 19
--- NOTE | 2024-11-10 10:24 | PC.NURSE ---
No BM or urine output noted during day shift. Pt dressed and dc instructions sent home w/ and [facility]. Report given to Lori.
== END 2024-11-10 10:26 | disposition home or self-care (01) ==
PROVIDERS: Emergency Provider Emergency Medicine; Family Provider Family Medicine; PCP Family Medicine
DX: C79.82 Secondary malignant neoplasm of genital organs (principal); F03.C0 Unspecified dementia, severe, without behavioral disturbance, psychotic disturbance, mood disturbance, and anxiety; Z51.5 Encounter for palliative care
CPT/HCPCS: 73030; 96361; 96372; 96374; 96375; 96376; 99284; J2060; J2270